=== PATIENT | female | born 1980 | race Two or more races ===

== ENCOUNTER 2016-05-12 05:33 | Emergency (ER) | payer OTHER ==
[~2016-05-12] VITALS: Ht 154.9 cm; Wt 80.7 kg
[2016-05-12] MEDS ORDERED: FENTANYL PF 100 MCG/2 ML VIAL. IV PRN (05:45)
[2016-05-12 05:59] LABS: BILIRUBIN,URINE NEGATIVE (NEG); GLUCOSE,URINE NEGATIVE (NEG); NITRITE,URINE NEGATIVE (NEG); PROTEIN,URINE NEGATIVE (NEG-TRACE); UROBILINOGEN,URINE 0.2 mg/dL (0.2 mg/dL)
[2016-05-12] MEDS ORDERED: KETOROLAC TROMETHAMINE 30 MG/ML SYRINGE. IV ONE (06:00)
[2016-05-12] MEDS ORDERED: IV NORMAL SALINE 1000ML BAG 1,000 ML IV SCH ×2 (06:00→06:30)
[2016-05-12] MEDS ORDERED: ONDANSETRON PF 4 MG/2 ML VIAL. IV ONE (06:00)
[2016-05-12 06:07] LABS: BACTERIA,URINE FEW /HPF (0-FEW); SQUAMOUS EPITHELIAL CELL,UR FEW /LPF
[2016-05-12 06:14] LABS: BASO # 0.1 x10^3/uL (0.0-0.2); BASO % 1 % (0-3); EOS % 1 % (0-3); HEMATOCRIT 42.4 % (36.0-47.0); HEMOGLOBIN 13.8 g/dL (12.0-15.5); LYMPH # 2.6 x10^3/uL (1.0-4.8); LYMPH % 20 % (24-48); MEAN CORPUSCULAR HEMOGLOBIN 27 pg (25-35); MEAN CORPUSCULAR HGB CONC 33 g/dL (31-37); MEAN CORPUSCULAR VOLUME 84 fL (79-100); MONO % 4 % (0-9); NEUT % 74 % (31-73); PLATELET COUNT 254 x10^3/uL (140-400); RED BLOOD COUNT 5.05 x10^6/uL (3.50-5.40); RED CELL DISTRIBUTION WIDTH 14.6 % (11.5-14.5); WHITE BLOOD COUNT 13.3 x10^3/uL (4.0-11.0)
--- NOTE | 2016-05-12 06:20 | PHYS DOC ---
Past Medical History Past Medical History: Asthma, Kidney Stone Past Surgical History: Alcohol Use: None Drug Use: None Adult General Chief Complaint Chief Complaint: FLANK PAIN HPI HPI Patient is a 35 year old female who presents with flank pain. Patient reports for the past 3 days she has been having sharp L flank pain. Also having pain in LUQ/LLQ. Pain similar to prior kidney stones. The pain is now getting worse and is more constant. No clear inciting or mitigating factors. Pain accompanied by dysuria. No nausea/vomiting. She has not taken anything for pain at home. Has had kidney stone in the past for which she had procedure to remove the stone. Review of Systems Review of Systems Constitutional: Denies fever or chills Eyes: Denies change in visual acuity or eye pain HENT: Denies nasal congestion or sore throat Respiratory: Denies cough or shortness of breath Cardiovascular: Denies chest pain GI: L side abdominal pain. Denies nausea, vomiting, bloody stools or diarrhea : Dysuria Musculoskeletal: L flank pain Integument: Denies rash or skin lesions Neurologic: Denies headache, focal weakness or sensory changes Current Medications Current Medications Current Medications Medications (Trade) Dose Ordered Sig/Zane Start Time Stop Time Status Last Admin Dose Admin Fentanyl Citrate (Fentanyl 2ml Vial) 50 mcg 1X ONCE 05/12/16 06:30 05/12/16 06:31 DC Ketorolac Tromethamine (Toradol) 10 mg 1X ONCE 05/12/16 06:00 05/12/16 06:01 DC 05/12/16 06:16 10 MG Ondansetron HCl 4 mg 4 mg 1X ONCE 05/12/16 06:00 05/12/16 06:01 DC 05/12/16 06:14 4 MG Sodium Chloride (Iv Sodium Chloride 0.9% 1000ml Bag) 1,000 ml @ 1,000 mls/hr Q1H 05/12/16 06:30 05/12/16 07:29 Allergies Allergies Allergies Coded Allergies Type Severity Reaction Last Updated Verified morphine Allergy Intermediate Nausea and Vomiting 02/02/15 Yes Physical Exam Physical Exam Constitutional: Well developed, well nourished, no acute distress, non-toxic appearance HENT: Normocephalic, atraumatic, bilateral external ears normal Eyes: EOMI, conjunctiva normal, no discharge Neck: Normal range of motion, no stridor Cardiovascular: Heart rate normal, regular rhythm, no murmur Lungs & Thorax: Bilateral breath sounds clear to auscultation Abdomen: Bowel sounds normal, soft, non-distended, LUQ/LLQ TTP Skin: Warm, dry, no erythema, no rash Back: L CVA tenderness Extremities: No obvious deformity, no edema Neurologic: Alert and oriented X 3, no gross deficits noted Current Patient Data Vital Signs Vital Signs Date Time Temp Pulse Resp B/P Pulse Ox O2 Delivery O2 Flow Rate FiO2 05/12/16 06:30 78 17 111/58 97 Room Air 05/12/16 05:40 97.9 97.9 Lab Values Laboratory Tests Test 05/12/16 05:40 05/12/16 06:05 Urine Collection Type Unknown Urine Color Yellow Urine Clarity Clear Urine pH 6.0 Urine Specific [place] <=1.005 Urine Protein Negativemg/dL (NEG-TRACE) Urine Glucose (UA) Negativemg/dL (NEG) Urine Ketones (Stick) Negativemg/dL (NEG) Urine Blood Large (NEG) Urine Nitrite Negative (NEG) Urine Bilirubin Negative (NEG) Urine Urobilinogen Dipstick 0.2mg/dL (0.2 mg/dL) Urine Leukocyte Esterase Negative (NEG) Urine RBC 6-10/HPF (0-2) Urine WBC 1-4/HPF (0-4) Urine Squamous Epithelial Cells Few/LPF Urine Bacteria Few/HPF (0-FEW) Urine Mucus Slight/LPF White Blood Count 13.3x10^3/uL (4.0-11.0) H Red Blood Count 5.05x10^6/uL (3.50-5.40) Hemoglobin 13.8g/dL (12.0-15.5) Hematocrit 42.4% (36.0-47.0) Mean Corpuscular Volume 84fL (79-100) Mean Corpuscular Hemoglobin 27pg (25-35) Mean Corpuscular Hemoglobin Concent 33g/dL (31-37) Red Cell Distribution Width 14.6% (11.5-14.5) H Platelet Count 254x10^3/uL (140-400) Neutrophils (%) (Auto) 74% (31-73) H Lymphocytes (%) (Auto) 20% (24-48) L Monocytes (%) (Auto) 4% (0-9) Eosinophils (%) (Auto) 1% (0-3) Basophils (%) (Auto) 1% (0-3) Neutrophils # (Auto) 9.9x10^3uL (1.8-7.7) H Lymphocytes # (Auto) 2.6x10^3/uL (1.0-4.8) Monocytes # (Auto) 0.6x10^3/uL (0.0-1.1) Eosinophils # (Auto) 0.1x10^3/uL (0.0-0.7) Basophils # (Auto) 0.1x10^3/uL (0.0-0.2) Sodium Level 143mmol/L (136-145) Potassium Level 3.8mmol/L (3.5-5.1) Chloride Level 104mmol/L (98-107) Carbon Dioxide Level 28mmol/L (21-32) Anion Gap 11 (6-14) Blood Urea Nitrogen 13mg/dL (7-20) Creatinine 0.8mg/dL (0.6-1.0) Estimated GFR (Cockcroft-Gault) 82.6 BUN/Creatinine Ratio 16 (6-20) Glucose Level 96mg/dL (70-99) Calcium Level 8.8mg/dL (8.5-10.1) Total Bilirubin 0.3mg/dL (0.2-1.0) Aspartate Amino Transferase (AST) 13U/L (15-37) L Alanine Aminotransferase (ALT) 19U/L (14-59) Alkaline Phosphatase 84U/L (46-116) Total Protein 7.3g/dL (6.4-8.2) Albumin 3.8g/dL (3.4-5.0) Albumin/Globulin Ratio 1.1 (1.0-1.7) Laboratory Tests 05/12/16 06:05 Laboratory Tests 05/12/16 06:05 EKG EKG [] Radiology/Procedures Radiology/Procedures CT A/P: IMPRESSION 1. No acute abdominal or pelvic abnormality. 2. Trace pelvic free fluid is probably physiologic. Course & Med Decision Making Course & Med Decision Making Pertinent Labs and Imaging studies reviewed. (See chart for details) Patient is 35 year old female who presents with flank pain. Likely kidney stone , would also consider UTI on DDx. Will check UA, urine preg, labs, CT A/P to evaluate. IVF, pain meds, nausea meds ordered for relief of symptoms. Labs notable for mild leukocytosis, hematuria. CT results as above; no stones seen. Discussed results with patient, who is feeling better at this time. Although UA not necessarily indicative of UTI, patient's symptoms would point to this in the absence of ureteral stone. Will therefore give dose of rocephin and discharge home with course of abx. Also gave rx for short course of pain medication. Discharged with instructions for follow up, return precautions. Dragon Disclaimer Dragon Disclaimer This electronic medical record was generated, in whole or in part, using a voice recognition dictation system. Departure Departure Impression: Primary Impression: Flank pain Disposition: HOME, SELF-CARE Condition: IMPROVED Referrals: LUIS SAHU MD (PCP) Patient Instructions: Flank Pain Additional Instructions: Thank you for allowing us to provide care today in the Emergency Department. Take the provided medication as directed. Use caution after taking the pain medication as it can make you drowsy. Schedule a follow up appointment with your primary care doctor. Return promptly to the Emergency Department if you develop any new or concerning symptoms. Scripts Tramadol Hcl 50 Mg [id number] Mg PO Q6H PRN PAIN #15 TAB Prov:MILAN MARTÍNEZ MD 05/12/16 Sulfamethoxazole/Trimethoprim (Bactrim Ds Tablet)1 Each Tablet1 Tab PO BID #14 TAB Prov:MILAN MARTÍNEZ MD 05/12/16 MILAN MARTÍNEZ MD May 12, 2016 06:20
[2016-05-12] MEDS ORDERED: FENTANYL PF 100 MCG/2 ML VIAL. IV ONE (06:30)
[2016-05-12 06:38] LABS: CALCIUM 8.8 mg/dL (8.5-10.1); CREATININE 0.8 mg/dL (0.6-1.0); GFR 82.6; POTASSIUM 3.8 mmol/L (3.5-5.1)
[2016-05-12 06:43] LABS: ALBUMIN 3.8 g/dL (3.4-5.0); ALBUMIN/GLOBULIN RATIO 1.1 (1.0-1.7); TOTAL BILIRUBIN 0.3 mg/dL (0.2-1.0); TOTAL PROTEIN 7.3 g/dL (6.4-8.2)
--- NOTE | 2016-05-12 06:44 | RAD ---
PROCEDURE CT abdomen pelvis without contrast. HISTORY Left-sided flank pain started 3 hours ago. History of kidney stones. TECHNIQUE Helical CT imaging of the abdomen pelvis performed without IV or oral contrast using renal stone protocol. PQRS: One or more the following individualized dose reduction techniques were utilized for the study: 1. Automated exposure control. 2. Adjustment of the mA and/or kV according to patient size. 3. Use of iterative reconstruction technique. COMPARISON None. FINDINGS The lung bases are clear. Cardiac size normal. The liver, gallbladder, spleen, pancreas, adrenal glands, and abdominal aortic caliber are normal. No hydronephrosis is seen No ureteral or renal calculus is identified. No obvious abnormality of the stomach, stomach not well distended. No dilated small bowel. No colon wall thickening is seen. The appendix is normal. No dilated small bowel. There is stool in the ascending and proximal transverse colon. No abdominal adenopathy or free fluid. Urinary bladder is normal. Uterus unremarkable. Bilateral fallopian tube closure devices. Trace pelvic free fluid is probably physiologic. Bilateral L5 spondylolysis. There is minimal grade 1 anterolisthesis of L5 on S1. IMPRESSION 1. No acute abdominal or pelvic abnormality. 2. Trace pelvic free fluid is probably physiologic. Electronically signed by: Chandrakant Olvera MD (May 12, 2016 06:43:03)
[2016-05-12] MEDS ORDERED: SULF1TAB24 PO (06:57)
[2016-05-12] MEDS ORDERED: TRAM50TA PO (06:57)
[2016-05-12] MEDS ORDERED: CEFTRIAXONE 1GM IVPB FOR OMNI 50 ML IV ONE (07:00)
[2016-05-12 08:00] VITALS: BP 104/59
== END 2016-05-12 08:00 | disposition home or self-care (01) ==
LOC: ER 05:33
DX: R10.9 Unspecified abdominal pain (principal); R30.0 Dysuria; R31.9 Hematuria, unspecified; D72.829 Elevated white blood cell count, unspecified; J45.909 Unspecified asthma, uncomplicated; Z98.890 Other specified postprocedural states; Z87.442 Personal history of urinary calculi; Z88.5 Allergy status to narcotic agent
CPT/HCPCS: 36415; 74176; 80053; 81001; 81025; 85027; 96361; 96365; 96375; 99285; J0690; J1885; J2405; J7030